=== PATIENT | female | born 1995 | race Caucasian/White ===

== ENCOUNTER 2019-04-27 22:58 | Observation (INO) | payer OTHER, SELFPAY ==
--- NOTE | 2019-04-27 23:04 | OBADM ---
This patient, Camilla Shannon, admitted to the OB room OB Post 117 for observation. Patient/family oriented to hospital policies and general routines including ID bracelet, bed and alarms, visiting hours, pain management, procedures, bathroom and other care routines, personal items, smoking policy, room service/diet, and visiting hours. Patient/Family are encouraged to report perceived risks to care and to ask questions if they do not understand what they are told or what they should do.
[2019-04-27 23:15] VITALS: BP 116/72; PULSE 93
[2019-04-27 23:16] VITALS: BP 117/74; PULSE 90
[2019-04-27 23:24] VITALS: BMI 32.7
--- NOTE | 2019-04-27 23:24 | PC.NURSE ---
Dr. Godoy notified of patient arrival to OB unit with complaint of increased vaginal discharge starting at 1300 04/27/2019. Patient reports clear colored fluid leaking intermittently, increased with movement. ROM plus results were positive for SROM. Patient reports active movement and movement visible by RN during monitor placement. VSS upon arrival. Patient reports back pain and cramping earlier today and yesterday, patient denies current pain or cramping. No contractions noted via TOCO monitoring and abdomen palpates soft. Orders given.
[2019-04-27 23:26] VITALS: TEMP 36.9
[2019-04-27 23:31] VITALS: BP 120/85; PULSE 118
[2019-04-27 23:46] VITALS: BP 131/79; PULSE 96
[2019-04-27 23:53] LABS: Basophils Percent Auto 0.4 % (0.2-1.2); Eosinophils Absolute Auto 0.1 K/mm3 (0-0.3); Eosinophils Percent Auto 1.3 % (0-4.4); Hematocrit 35.2 % (37.0-47.0); Hemoglobin 11.7 g/dL (12.0-15.0); Immature Granulocyte Absolute 0.06 K/mm3 (0.00-0.031); Immature Granulocyte Percent A 0.7 % (0-0.5); Lymphocytes Absolute Auto 2.06 K/mm3 (0.9-3.2); Lymphocytes Percent Auto 23.2 % (18.3-44.2); Mean Corpuscular HGB Conc 33.2 g/dl (32-36); Mean Corpuscular Hemoglobin 30.4 pg (26-34); Mean Corpuscular Volume 91.4 fl (80-100); Monocytes Absolute Auto 0.7 K/mm3 (0.1-0.6); Monocytes Percent Auto 7.5 % (2.6-8.5); Neutrophils Absolute Auto 5.9 K/mm3 (1.3-6.7); Neutrophils Percent Auto 66.9 % (45.5-73.1); Platelet Count Result 210 k/mm3 (150-375); Red Blood Count 3.85 M/mm3 (4.2-5.4); Red Cell Distribution Width 12.5 % (11.5-14.5); White Blood Count 8.9 K/mm3 (4.5-10.0)
[2019-04-27 23:55] LABS: Add Urine Microscopic? NO; Appearance Urine Clear (Clear); Bilirubin Urine Negative (Negative); Blood Urine Negative (Negative); Color Urine Straw (Yellow); Glucose Urine UA Negative (Negative); Ketones Urine Negative (Negative); Leukocyte Esterase Ur Negative LEU/UL (Negative); Nitrate Urine Negative (Negative); Protein Urine Negative (Negative); Specific Grav Ur 1.013 (1.001-1.035); Urobilinogen Urine Negative mg/dL (<2.0)
[2019-04-28] MEDS: LACTATED RINGERS 1,000 ML 100 ML IV CONT ×2 (00:01→01:55)
[2019-04-28] MEDS: BETAMETHASONE SOD PHOS/ACETATE 30 MG/5 ML VIAL 12 MG IM (00:02)
[2019-04-28 00:07] LABS: Alanine Aminotransferase 27 U/L (4-35); Albumin Level 3.6 g/dL (3.5-5.1); Alkaline Phosphatase 87 U/L (38-126); Aspartate Amino Transferase 21 U/L (14-36); Bilirubin,Total 0.1 mg/dL (0.2-1.3); Blood Urea Nitrogen 6 mg/dL (7-17); Calcium 9.1 mg/dL (8.4-10.2); Carbon Dioxide 22 mmol/L (22-30); Chloride 105 mmol/L (98-107); Estimated Glomerular Filt Rate > 60; Glucose 96 mg/dL (65-105); Potassium 3.8 mmol/L (3.4-5.0); Sodium 135 mmol/L (137-145)
--- NOTE | 2019-04-28 00:16 | PC.NURSE ---
Dr. Godoy at patient bedside. Plan of care discussed with patient. Order given for Magnesium Sulfate. FHT reviewed while at bedside. VS remain stable.
--- NOTE | 2019-04-28 00:24 | PC.NURSE ---
Dr. Godoy at bedside. Bedside ultrasound performed. Breech presentation confirmed.
[2019-04-28 00:38] VITALS: BP 131/79; PULSE 96; RESP 18; TEMP 36.4
[2019-04-28] MEDS: MAGNESIUM SULF 4 GM/WATER100ML 4 GM/100 ML BAG IVPB (00:38)
[2019-04-28 01:15] VITALS: TEMP 36.9
[2019-04-28] MEDS: MAGNESIUM SULF 20GM/WATER500ML 500 ML 50 MG IV CONT (01:15)
[2019-04-28] MEDS: AMPICILLIN 2 GM/NS 100 ML 2 GM/100 ML BAG IVPB (01:15)
--- NOTE | 2019-04-28 01:30 | PC.NURSE ---
Transport team arrived. Report given at bedside to transportation equipment painter. Patient prepared for transport by transport team.
[2019-04-28 01:32] VITALS: BP 123/75; PULSE 108
[2019-04-28 01:38] VITALS: TEMP 36.9
--- NOTE | 2019-04-28 01:46 | PC.NURSE ---
Patient left unit via stretcher with transport team.
--- NOTE | 2019-06-26 12:05 | PM.TDS ---
Transfer Discharge Sum: Prov Provider Date of admission: 04/27/19 22:58 Admitting clinician: Hector Godoy MD DS: Diagnosis Admitting Diagnosis Admitting Diagnosis: premature rupture of membranes, unspecified as to length of time between rupture and onset of labor, second trimester Transfer Discharge Sum: Med Medications Active and Home Medications: Home Medications PNV cmb#95-ferrous fumarate-FA [] 1 tablet PO DAILY 04/27/19 [History Confirmed 04/28/19] buspirone 5 mg PO DAILY 04/27/19 [History Confirmed 04/28/19] sertraline 100 mg PO DAILY 04/27/19 [History Confirmed 04/28/19] Transfer Discharge Sum: Hosp Hospital Course Hospital course: Camilla Shannon is a 23 year old female @ 24 weeks with spontaneous rupture of membranes. bedside ultrasound performed breech presentation. Patient transfered to tertiary center. Time Spent with Patient Time attestation: Total time spent providing and/or coordinating transfer services: Exam GI: GI Palp: Yes Soft to palpation
== END 2019-04-28 01:46 | disposition short-term general hospital (02) ==
PROVIDERS: Admitting Provider Obstetrics & Gynecology; Visit Provider Obstetrics & Gynecology
DX: O42.912 Preterm premature rupture of membranes, unspecified as to length of time between rupture and onset of labor, second trimester (principal); Z3A.24 24 weeks gestation of pregnancy
CPT/HCPCS: 36415; 80053; 81003; 85025; 96365; 96366; 96367; 96368; 96372; G0378; G0379; J0290; J0456; J0702; J3475; J7120

== ENCOUNTER 2021-05-23 19:11 | Emergency (ER) | payer OTHER, SELFPAY ==
--- NOTE | 2021-05-23 19:12 | ED.URI ---
HPI - URI/Sore Throat General Chief Complaint: Upper Respiratory Infection Stated Complaint: Body Aches Time Seen by Provider: 05/23/21 19:13 Source: patient, family, RN notes reviewed and old records reviewed Mode of arrival: ambulatory Limitations: no limitations History of Present Illness HPI Narrative: 25-year-old female presents to the [facility] with complaints of body aches that started this afternoon. No other symptoms. Denies chest pain or abdominal pain. No nausea vomiting or diarrhea. Denies fevers. No congestion. Related Data Home Medications Medication Instructions Recorded Confirmed buspirone 5 mg PO BID 05/23/21 05/23/21 omeprazole 10 mg PO DAILY 05/23/21 05/23/21 sertraline 25 mg PO DAILY 05/23/21 05/23/21 Allergies Allergy/AdvReac Type Severity Reaction Status Date / Time cephalexin [From Keflex] Allergy Itching Verified 05/23/21 19:35 tramadol Allergy Itching Verified 05/23/21 19:35 Review of Systems Review of Systems: All systems reviewed & are unremarkable except as noted in HPI and below Constitutional: Constitutional: Reports no additional constitutional complaints, Denies chills, Denies fever(s) and Denies headache(s) Eyes: Eyes: Reports no additional eye complaints ENT: Reports system reviewed and no additional complaints, except as documented, Denies vertigo, Denies dizziness, Denies headache(s), Denies nasal congestion and Denies sore throat Cardiovascular: Cardiovascular: Reports no additional cardiovascular complaints, Denies chest pain, Denies syncope, Denies rapid heart rate and Denies dyspnea Respiratory: Respiratory: Reports no additional respiratory complaints, Denies cough, Denies dyspnea and Denies wheezing Gastrointestinal: Gastrointestinal: Reports no additional gastrointestinal complaints, Denies abdominal pain, Denies diarrhea, Denies nausea and Denies vomiting Musculoskeletal: Musculoskeletal: Reports as per HPI, Denies back pain, Reports myalgias, Denies arthralgias, Denies joint swelling, Denies muscle cramps and Denies numbness Integumentary/Breasts: Skin/Breast: Reports system reviewed and no additional complaints, except as docu Neurologic: Reports system reviewed and no additional complaints, except as documented, Denies vertigo, Denies dizziness, Denies syncope, Denies headache(s), Denies focal weakness and Denies numbness Psychiatric: Psychiatric: Reports no additional psychiatric complaints Allergic/Immunologic: Allergic/Immunologic: Reports no additional allergic/immunologic complaints and Denies wheezing PMFSH Past Medical History Medical History (Updated 05/23/21 @ 19:36 by Kanchan Muse) Anxiety and depression H/O gastroesophageal reflux (GERD) Surgical History Surgical History (Updated 05/23/21 @ 19:34 by Kanchan Muse) History of tonsillectomy Social History Social History (Updated 05/23/21 @ 19:34 by Kanchan Muse) Smoking status: Never smoker Living arrangements: with family Gender identity (if verbalized by the patient): Female Comments At the time of my signature, I reviewed and agree with the nursing past medical, surgical, social, and family history. There is no relevant family history pertinent to the patient complaint. Exam Const: General: cooperative, healthy appearing, no acute distress, well developed and alert Nutritional Appearance: well nourished and obese Orientation/consciousness: patient oriented x3 Limitations: no limitations HENMT: Head: normal to inspection Ears: external ears normal, TM's normal bilaterally and EAC's normal Face and sinus: sinuses nontender Mouth: Yes Normal oral and palatal mucosa present Throat: posterior oropharynx normal, uvula midline, tonsils absent and no uvular edema Eyes: Conjunctivae: conjunctivae normal Pupils: Equal, round and reactive pupils present Neck: Neck: normal visual inspection, no lymphadenopathy and no meningeal signs Chest: Chest palpation & inspection: normal
[2021-05-23 19:28] VITALS: BP 137/84; PULSE 94; RESP 16; TEMP 36.8; O2SAT 100
== END 2021-05-23 19:40 | disposition home or self-care (01) ==
PROVIDERS: Emergency Provider Nurse Practitioner; PCP Physician Assistant
DX: R52 Pain, unspecified (principal); Z20.822 Contact with and (suspected) exposure to COVID-19; K21.9 Gastro-esophageal reflux disease without esophagitis; F41.9 Anxiety disorder, unspecified; F32.A Depression, unspecified
CPT/HCPCS: 99202; G0463

== ENCOUNTER 2023-05-24 14:12 | Outpatient (CLI) | payer BC, SELFPAY ==
--- NOTE | ~2023-05-24 | US_ITS ---
EXAMINATION: US OB transvaginal DATE: 05/24/2023 14:38 INDICATION: Inconclusive viability, first trimester TECHNIQUE: Real-time pelvic transabdominal and transvaginal ultrasound was performed. COMPARISON: None. FINDINGS: The uterus measures 9.5 x 5.0 x 5.3 cm. There is an intrauterine gestational sac. hea rt motion is identified measuring 93 beats per minute (bpm) by M-mode Doppler. The crown rump l ength measures 3 mm, which correlates with an estimated gestational age of 6 weeks and 0 day(s) (+/-) 4 day(s). The right ovary measures 3.5 x 2.9 x 4.1 cm. The left ovary measures 3.1 x 1.4 x 3.5 cm. There is no free fluid in the pelvis. IMPRESSION: 1. Live intrauterine with an estimated gestational age of 6 weeks and 0 day(s) (+/-) 4 day( s) and an estimated delivery date of 01/17/2024. 2. Possible bradycardia however measurement may be inaccurate due to early gestation. Reviewed, dictated and finalized at location F. RAGE INSPECTION MACHINE TENDER IMPRESSION: 1. Live intrauterine with an estimated gestational age of 6 weeks and 0 day(s) (+/-) 4 day(s) and an estimated delivery date of 01/17/2024. 2. Possible bradycardia however measurement may be inaccurate due to leeanne y gestation.
== END 2023-05-24 14:13 ==
LOC: MICIMG 14:13
PROVIDERS: PCP Obstetrics & Gynecology Gynecology; Visit Provider Obstetrics & Gynecology Gynecology
DX: O36.80X1 Pregnancy with inconclusive fetal viability, fetus 1 (principal); Z3A.01 Less than 8 weeks gestation of pregnancy
CPT/HCPCS: 76817

== ENCOUNTER 2023-05-30 14:16 | Outpatient (CLI) | payer BC, SELFPAY ==
--- NOTE | ~2023-05-30 | US_ITS ---
EXAMINATION: US OB <= 14 weeks fetus DATE: 05/30/2023 14:36 INDICATION: Inconclusive viability. TECHNIQUE: Real-time transabdominal and transvaginal pelvic ultrasound was performed. COMPARISON: Ultrasound 05/24/2023 FINDINGS: TRANSABDOMINAL ULTRASOUND: The uterus measures 8.9 x 5.1 x 6.2 cm. TRANSVAGINAL ULTRASOUND: There is an intrauterine gestational sac. A yolk sac is identified. The fet al crown rump length measures 8 mm, which correlates with an estimated gestational age of 6 weeks and 5 day(s) (+/-) 4 day(s). heart motion is identified measuring 118 beats per minute (bpm) by M- mode Doppler. The right ovary measures 3.6 x 2.4 x 3.5 cm. The left ovary measures 2.6 x 0.8 x 1.9 cm . There is no free fluid in the pelvis. IMPRESSION: 1. Single living intrauterine gestation with estimated date of delivery of 01/17/2024 based on the ul trasound from 05/24/2023. Reviewed, dictated and finalized at location E. PRESIDENT INVESTOR RELATIONS IMPRESSION: 1. Single living intrauterine gestation with estimated date of delivery of 01/05 based on the ultrasound from 05/24/2023.
== END 2023-05-30 14:17 ==
LOC: MICIMG 14:16
PROVIDERS: PCP Obstetrics & Gynecology Gynecology; Visit Provider Obstetrics & Gynecology Gynecology
DX: O36.80X0 Pregnancy with inconclusive fetal viability, not applicable or unspecified (principal)
CPT/HCPCS: 76801

== ENCOUNTER 2023-06-07 14:44 | Outpatient (CLI) | payer BC, SELFPAY ==
--- NOTE | ~2023-06-07 | US_ITS ---
EXAMINATION: US OB limited DATE: 06/07/2023 15:12 INDICATION: Inconclusive viability. TECHNIQUE: Real-time transabdominal pelvic ultrasound was performed. COMPARISON: Ultrasound 05/30/2023, 05/24/23 FINDINGS: The uterus measures 10.7 x 5.7 x 6.7 cm. There is an intrauterine gestational sac. A yolk sac is iden tified. The crown rump length was not measured. heart motion is identified measuring 166 beats per minute (bpm) by M-mode Doppler. The ovaries are not visualized. There is no free fluid in the pelvis. IMPRESSION: 1. Single living intrauterine gestation with estimated date of delivery of 01/17/2024 based on the ul trasound from 05/24/2023. Reviewed, dictated and finalized at location A. CTOR OF PARTNERSHIPS IMPRESSION: 1. Single living intrauterine gestation with estimated date of delivery of 01/05 based on the ultrasound from 05/24/2023.
== END 2023-06-07 14:45 ==
LOC: MICIMG 14:45
PROVIDERS: PCP Obstetrics & Gynecology Gynecology; Visit Provider Obstetrics & Gynecology Gynecology
DX: O36.80X0 Pregnancy with inconclusive fetal viability, not applicable or unspecified (principal); Z3A.00 Weeks of gestation of pregnancy not specified
CPT/HCPCS: 76815

== ENCOUNTER 2023-08-17 15:24 | Outpatient (CLI) | payer BC, SELFPAY ==
--- NOTE | ~2023-08-17 | US_ITS ---
US OB /maternal detail DATE: 08/17/2023 17:17 INDICATION: anatomy screen TECHNIQUE: Real-time imaging and Doppler analysis COMPARISON: June 07, 2023 and May 30, 2023 extent ultrasound examinations FINDINGS: Live martinez intrauterine gestation, fetus in transverse lie, breech presentation. heart rate of 168 bpm. Fundal placenta, lower margin 9.2 cm above the internal os. Cervical length measures 3.8 cm. Subjectively normal amount of amniotic fluid. Normal cerebral ventricles, cerebellum, cisterna magna and nuchal fold. The spine appears intact on transverse and longitudinal imaging. The diaphragm appears intact. Fluid is demonstr ated in the stomach and urinary bladder. The kidneys appear normal without hydronep hrosis. extremities are demonstrated. Three-vessel cord with normal insertion. Four-chamber heart and outflow tracts were not optimally demonstrated on the current examinatio n. Consider follow-up imaging for this purpose. Biparietal diameter 4.24 cm; 18 weeks 6 days Head circumference 15.27 cm; 18 weeks 2 days Abdominal circumference 13.22 cm; 18 weeks 5 days Femur length 2.65 cm; 18 weeks 0 days Composite age by Hadlock formula is 18 weeks 3 days +/- 1 week 2 days based upon the current measurem ents, with BERT of 01/15/2024, compared to 01/18/2024 based upon the 05/30/2023 obstetrical ultrasound ex amination and 01/17/2024 based upon LMP. IMPRESSION: Breech presentation Suboptimal heart and outflow tract demonstration; consider follow-up imaging Normal growth Reviewed, dictated and finalized at Location A. Reviewed, dictated and finalized at location A. IMPRESSION: Breech presentation Suboptimal heart and outflow tract demonstration; consider follow-up imag ing Normal growth
== END 2023-08-17 15:25 ==
LOC: MICIMG 15:24
PROVIDERS: PCP Obstetrics & Gynecology Gynecology; Visit Provider Obstetrics & Gynecology Gynecology
DX: O32.1XX0 Maternal care for breech presentation, not applicable or unspecified (principal); Z36.9 Encounter for antenatal screening, unspecified; Z3A.00 Weeks of gestation of pregnancy not specified
CPT/HCPCS: 76805

== ENCOUNTER 2023-09-17 12:52 | Outpatient (CLI) | payer BC, SELFPAY ==
--- NOTE | ~2023-09-17 | US_ITS ---
EXAMINATION: US OB limited DATE: 09/17/2023 13:14 INDICATION: Incomplete anatomic survey. Second trimester. TECHNIQUE: Real-time ultrasound of the pelvis was performed. COMPARISON: Ultrasound 08/17/2023 FINDINGS: There is a single fetus in transverse lie. The placenta is fundal. The cervical length is 3.4 cm on transabdominal images, which is normal. heart rate is 130 beats per minute (bpm). The hea rt is normal. The amniotic fluid volume is subjectively normal. IMPRESSION: 1. Single living fetus in transverse lie. 2. Normal heart. Reviewed, dictated and finalized at location A.
== END 2023-09-17 12:53 ==
LOC: MICIMG 12:53
PROVIDERS: PCP Obstetrics & Gynecology Gynecology; Visit Provider Obstetrics & Gynecology Gynecology
DX: Z36.2 Encounter for other antenatal screening follow-up (principal); Z3A.00 Weeks of gestation of pregnancy not specified
CPT/HCPCS: 76815

== ENCOUNTER 2023-10-25 14:18 | Outpatient (CLI) | payer BC, SELFPAY ==
--- NOTE | ~2023-10-25 | US_ITS ---
EXAMINATION: US OB follow up DATE: 10/25/2023 14:42 INDICATION: Expected size greater than expected for estimated gestational age TECHNIQUE: Real-time ultrasound of the pelvis was performed. The interpreting radiologist was not pre sent for the study. COMPARISON: None. FINDINGS: There is a single living fetus in transverse lie presentation. The placenta is fundal and not low-ly ing. Normal cervical length of 4.1 cm. heart rate is 130 beats per minute (bpm). The amniotic f luid index is 11.5 cm, which is normal. The following biometric data were obtained: BPD: 7.4 cm -> 29 weeks 5 days Head circumference: 25.8 cm -> 29 weeks 1 days Abdominal circumference: 24.7 cm -> 28 weeks 6 days Femur length: 5.0 cm -> 26 weeks 5 days Femur length to biparietal diameter ratio is greater than 2 standard deviations below the mean and th e femur length to head circumference ratio is nearly 2 standard deviations below the mean. Head circumference to abdominal circumference ratio: 1.08 (normal range 1.00-1.21). Estimated weight: 1203 g (+/-) g or 1812 lbs. 10 oz. (+/-) 6 oz. IMPRESSION: 1. Single living fetus in transverse lie with heart rate of 130 bpm. 2. Normal amniotic fluid index of 11.5 cm. 3. Estimated weight is 48th percentile by Hadlock criteria when 01/17/24 is used as the estimate d date of delivery (BERT). Please correlate with clinical information or earlier ultrasounds for most accurate BERT. 4. Discordant biometric data with femur length to biparietal diameter ratio slightly greater than 2 s tandard deviations below the mean and femur length to head circumference ratio is nearly 2 standard d eviations below the mean. Reviewed, dictated and finalized at location A. IMPRESSION: 1. Single living fetus in transverse lie with heart rate of 130 bpm. 2. Normal amniotic fluid index of 11.5 cm. 3. Estimated weight is 48th percentile by Hadlock criteria when 01/17/24 i s used as the estimated date of delivery (BERT). Please correlate with clinical information or earlier ultrasounds for most accurate BERT. 4. Discordant biometric data with femur length to biparietal diameter ratio sli ghtly greater than 2 standard deviations below the mean and femur length to hea d circumference ratio is nearly 2 standard deviations below the mean.
== END 2023-10-25 14:19 ==
LOC: MICIMG 14:20
PROVIDERS: PCP Obstetrics & Gynecology Gynecology; Visit Provider Obstetrics & Gynecology Gynecology
DX: O36.63X0 Maternal care for excessive fetal growth, third trimester, not applicable or unspecified (principal); Z3A.00 Weeks of gestation of pregnancy not specified
CPT/HCPCS: 76816

== ENCOUNTER 2024-01-12 15:30 | Inpatient (IN) | payer BC, SELFPAY ==
[2024-01-12] VITALS (113 sets, daily range): BP systolic 85–151; BP diastolic 53–116; PULSE 73–160; TEMP 36.6–37; O2SAT 90–100; BMI 39.5
[2024-01-12 16:32] LABS: Basophils Percent Auto 0.1 % (0.2-1.2); Eosinophils Percent Auto 0.3 % (0-4.4); Hematocrit 35.5 % (37.0-47.0); Hemoglobin 12.3 g/dL (12.0-15.0); Immature Granulocyte Absolute 0.02 K/mm3 (0.00-0.031); Immature Granulocyte Percent A 0.3 % (0-0.5); Lymphocytes Absolute Auto 1.37 K/mm3 (0.9-3.2); Lymphocytes Percent Auto 17.7 % (18.3-44.2); Mean Corpuscular HGB Conc 34.6 g/dl (32-36); Mean Corpuscular Hemoglobin 30.6 pg (26-34); Mean Corpuscular Volume 88.3 fl (80-100); Mean Platelet Volume 12.1 fl (7.4-10.4); Monocytes Absolute Auto 0.6 K/mm3 (0.1-0.6); Monocytes Percent Auto 7.9 % (2.6-8.5); Neutrophils Absolute Auto 5.7 K/mm3 (1.3-6.7); Neutrophils Percent Auto 73.7 % (45.5-73.1); Platelet Count Result 133 k/mm3 (150-375); Red Blood Count 4.02 M/mm3 (4.2-5.4); Red Cell Distribution Width 13.3 % (11.5-14.5); White Blood Count 7.7 K/mm3 (4.5-10.0)
[2024-01-12] MEDS: LACTATED RINGERS 1,000 ML 125 ML IV CONT ×3 (16:40→19:21)
[2024-01-12 17:28] LABS: HIV 1/2 Ab P24 Ag Result Negative (Negative)
--- NOTE | 2024-01-12 17:32 | LDADM ---
This patient, Camilla Shannon, was admitted to Labor/Delivery/Recovery 105 on 01/12/24 at 15:30. Plans for labor, pain management and were discussed with patient. Patient/family oriented to hospital policies and general routines including ID bracelet, bed and alarms, visiting hours, pain management, procedures, bathroom and other care routines, personal items, smoking policy, room service/diet and guest tray routines, security routines, and visiting hours. Patient/Family are encouraged to report perceived risks to care and to ask questions if they do not understand what they are told or what they should do. See OBIX for further documentation.
--- NOTE | 2024-01-12 17:57 | WPDANESEPP ---
Anes - Eval Pre Procedure Procedure: Labor epidural Date/Time: 01/12/24 17:57 Surgeon: Marcelo Preop Diagnosis: Abdominal pain with contractions Pre Op Diagnosis: Labor Patient Data Age: 28 Gender: F Height: 1.55 m Weight: 95 kg Last Vital Signs Pulse 89 01/12/24 17:45 BP 125/85 01/12/24 17:45 O2 Del Method Room Air 01/12/24 17:29 Allergies Allergy/AdvReac Type Severity Reaction Status Date / Time cephalexin [From Keflex] Allergy Itching Verified 12/20/23 13:31 tramadol Allergy Itching Verified 12/20/23 13:31 Home Medications Medication Instructions Recorded Confirmed Type vit no.95-ferrous 1 tablet PO DAILY 04/27/19 09/04/23 History fumarate 28 mg-folic acid 800 mcg tablet () buspirone 15 mg tablet 15 mg PO BID #180 tabs 01/20/22 09/04/23 Rx sertraline 100 mg tablet 200 mg PO DAILY #180 tabs 05/01/23 09/04/23 Rx cholecalciferol (vitamin D3) 125 125 mcg PO DAILY 12/20/23 12/20/23 History mcg (5,000 unit) tablet Laboratory Tests 01/12/24 16:24 WBC 7.7 K/mm3 (4.5-10.0) RBC 4.02 L M/mm3 (4.2-5.4) Hgb 12.3 g/dL (12.0-15.0) Hct 35.5 L % (37.0-47.0) MCV 88.3 fl (80-100) MCH 30.6 pg (26-34) MCHC 34.6 g/dl (32-36) RDW 13.3 % (11.5-14.5) Plt Count 133 L k/mm3 (150-375) MPV 12.1 H fl (7.4-10.4) Immature Gran % (Auto) 0.3 % (0-0.5) Neut % (Auto) 73.7 H % (45.5-73.1) Lymph % (Auto) 17.7 L % (18.3-44.2) [place] % (Auto) 7.9 % (2.6-8.5) Eos % (Auto) 0.3 % (0-4.4) Baso % (Auto) 0.1 L % (0.2-1.2) Lymph # (Auto) 1.37 K/mm3 (0.9-3.2) [place] # (Auto) 0.6 K/mm3 (0.1-0.6) Eos # (Auto) 0.0 K/mm3 (0-0.3) Baso # (Auto) 0.0 K/mm3 (0.0-0.1) Abs Immat Gran (auto) 0.02 K/mm3 (0.00-0.031) Absolute Neuts (auto) 5.7 K/mm3 (1.3-6.7) Absolute Nucleated RBC 0.000 K/mm3 (0.0-0.012) Nucleated RBC % 0.0 % (0.0-0.2) RPR Pending HIV 1&2 Ab/P24 Ag 4thGn Negative (Negative) Blood Type O Positive Antibody Screen Negative : gestational age HCG: positive Patient hx anesthesia problems: none Family hx anesthesia problems: none Results Review: All pre-operative results and documents have been reviewed as part of the pre-operative evaluation. [facility] Past Medical History Medical History Anxiety and depression Asthma H/O gastroesophageal reflux (GERD) History of premature rupture of membranes (PPROM) SOB (shortness of breath) Surgical History Surgical History H/O foot surgery History of nasal surgery History of tonsillectomy Family History Family History Mother Brain tumor Cerebrovascular accident Neoplasm of heart Other Asthma Social History Social History Smoking status: Never smoker Alcohol intake: current Substance use: never Do You Feel Safe in your Home?: Yes Lack of Transportation: No Lack of Food: Never True Current Housing: I Have Housing Concerned About Future Housing: No Difficulty Paying Gas/Electric Bills: No Difficulty Paying for Meds: No Currently Unemployed: No Education: Associate Degree Difficulty w/ Childcare or Family Care: No Living arrangements: with family Gender identity (if verbalized by the patient): Female Spiritual care concerns: No Exam Day of Procedure 01/12/24 17:57 Patient weight: obese Lungs: clear to auscultation Airway: Mallampati scale class II Neurological: alert and oriented
[2024-01-12 18:29] LABS: Rapid Plasma Reagin Non-Reactive (NonReactive)
[2024-01-13] VITALS (83 sets, daily range): BP systolic 118–157; BP diastolic 70–103; PULSE 68–158; RESP 18; TEMP 36.3–37.3; O2SAT 86–100
--- NOTE | 2024-01-13 01:09 | PM.IMHP ---
H&P: HPI History of Present Illness Date/Time: 01/13/24 01:09 Chief Complaint: Contractions Narrative: 28 y/o at 39 5/7 weeks here with contractions. Labor diagnosed. Cervix has continued to dilate. Just had SROM with meconium-stained fluid. GBS neg. Comfortable with epidural. Review of Systems Review of Systems: All systems reviewed & are unremarkable except as noted in HPI and below PMFSH Past Medical History Medical History Anxiety and depression Asthma H/O gastroesophageal reflux (GERD) History of premature rupture of membranes (PPROM) SOB (shortness of breath) Surgical History Surgical History H/O foot surgery History of nasal surgery History of tonsillectomy Family History Family History Mother Brain tumor Cerebrovascular accident Neoplasm of heart Other Asthma Social History Social History Smoking status: Never smoker Alcohol intake: current Substance use: never Do You Feel Safe in your Home?: Yes Lack of Transportation: No Lack of Food: Never True Current Housing: I Have Housing Concerned About Future Housing: No Difficulty Paying Gas/Electric Bills: No Difficulty Paying for Meds: No Currently Unemployed: No Education: Associate Degree Difficulty w/ Childcare or Family Care: No Living arrangements: with family Gender identity (if verbalized by the patient): Female Spiritual care concerns: No Meds Home Medications and Allergies Home Medications Medication Instructions Recorded Confirmed Type vit no.95-ferrous 1 tablet PO DAILY 04/27/19 09/04/23 History fumarate 28 mg-folic acid 800 mcg tablet () buspirone 15 mg tablet 15 mg PO BID #180 tabs 01/20/22 09/04/23 Rx sertraline 100 mg tablet 200 mg PO DAILY #180 tabs 05/01/23 09/04/23 Rx cholecalciferol (vitamin D3) 125 125 mcg PO DAILY 12/20/23 12/20/23 History mcg (5,000 unit) tablet Allergies Allergy/AdvReac Type Severity Reaction Status Date / Time cephalexin [From Keflex] Allergy Itching Verified 12/20/23 13:31 tramadol Allergy Itching Verified 12/20/23 13:31 Vital Signs Vital Signs - 24 hr 01/12/24 16:15 01/12/24 16:30 01/12/24 16:45 Temperature Pulse Rate 105 H 101 H 96 Blood Pressure 124/79 117/84 130/83 Pulse Oximetry Oxygen Delivery 01/12/24 17:00 01/12/24 17:15 01/12/24 17:45 Temperature Pulse Rate 96 90 89 Blood Pressure 124/81 115/76 125/85 Pulse Oximetry Oxygen Delivery 01/12/24 18:00 01/12/24 18:01 01/12/24 18:03 Temperature Pulse Rate 102 H Blood Pressure 111/94 H Pulse Oximetry 99 100 Oxygen Delivery 01/12/24 18:07 01/12/24 18:08 01/12/24 18:10 Temperature Pulse Rate 95 112 H Blood Pressure 129/76 147/95 H Pulse Oximetry 99 Oxygen Delivery 01/12/24 18:12 01/12/24 18:13 01/12/24 18:16 Temperature Pulse Rate 118 H 99 Blood Pressure 151/116 H 132/86 Pulse Oximetry 99 Oxygen Delivery 01/12/24 18:17 01/12/24 18:18 01/12/24 18:21 Temperature Pulse Rate 105 H 89 Blood Pressure 143/101 H 119/69 Pulse Oximetry 98 98 Oxygen Delivery 01/12/24 18:23 01/12/24 18:24 01/12/24 18:27 Temperature Pulse Rate 90 96 Blood Pressure 123/70 120/65 Pulse Oximetry 99 Oxygen Delivery 01/12/24 18:28 01/12/24 18:30 01/12/24 18:33 Temperature Pulse Rate 86 87 Blood Pressure 120/69 119/69 Pulse Oximetry 100 100 Oxygen Delivery 01/12/24 18:36 01/12/24 18:38 01/12/24 18:39 Temperature Pulse Rate 84 81 Blood Pressure 118/78 114/73 Pulse Oximetry 100 Oxygen Delivery 01/12/24 18:42 01/12/24 18:43 01/12/24 18:45 Temperature Pulse Rate 86 80 Blood Pressure 120/74 122/77 Pu
[2024-01-13] MEDS: OXYTOCIN 30 UNITS/NS 500 ML 30 UNITS/500 ML BAG IV CONT (01:35)
[2024-01-13] MEDS: ONDANSETRON INJ 4 MG/2 ML VIAL IV PUSH (02:03)
[2024-01-13] MEDS: LACTATED RINGERS 1,000 ML 125 ML IV CONT (03:34)
--- NOTE | 2024-01-13 04:38 | PM.OBPRVD ---
OB - Vaginal Delivery Note Procedure Delivery date: 01/13/24 Induction method: None Delivery augmentation: Pitocin Delivery monitor: External FHT, External Uterine and Internal Uterine Route of delivery: Episiotomy description: None Specimen: Yes (cord blood, placenta) Quantitative Blood Loss (ml): 80 Anesthesia type: Epidural Disposition: PACU Complications: None Narrative: 28 y/o at 39 5/7 weeks gestation who presented with contractions. Labor was diagnosed. She received an epidural for pain control. She had SROM with thick meconium. Oxytocin was administered intravenously for labor augmentation. Her labor progressed and her cervix dilated completely. She pushed and the infant rotated from LOP to DANITA. The 's head delivered to the perineum, followed by the body. A loose nuchal cord was reduced. The nose and mouth were bulb suctioned. The cord was clamped and cut. The infant was handed off the field. Cord blood was collected. The placenta delivered spontaneously and was grossly normal in appearance. The usual 3 vessel cord was noted. There were no lacerations. Needle and instrument counts were correct. The patient was taken to recovery room in stable condition. The showed poor respiratory effort and was taken to the nursery. I was present and scrubbed for the entire delivery. Baby Date of : 01/13/24 Time of : 04:22 Gestational Age by Date: 39 gender: Male presentation: vertex position: Left Occiput Anterior Placenta delivery description: Spontaneous and Normal Configuration Cord Vessel Description: 3 Vessels and Nuchal Cord
--- NOTE | 2024-01-13 04:46 | PM.OBDSVD ---
DS: Admitting Diagnosis Discharge Date 01/13/24 Admitting Diagnosis IUP at 39 5/7 weeks Labor DS: Discharge Diagnosis Discharge Diagnosis (1) (normal spontaneous vaginal delivery): Code(s): O80 - Encounter for full-term uncomplicated delivery Status: Acute OB - DS: Summary Hospital Course Hospital Course: Delivered vaginally. Baby was transferred, so patient asked to be discharged late on PPD#0. OB Procedures : None OB Procedures Intrapartum: Spontaneous Vag Delivery OB Procedures: : None Peripartum Data Episiotomy description: None Time Spent with Patient Time attestation: Total time spent providing and/or coordinating discharge services: DS: Data Data Completed and Pending Labs on day of discharge: Labs from last 24 hours 01/12/24 16:24 WBC 7.7 RBC 4.02 L Hgb 12.3 Hct 35.5 L MCV 88.3 MCH 30.6 MCHC 34.6 RDW 13.3 Plt Count 133 L MPV 12.1 H Immature Gran % (Auto) 0.3 Neut % (Auto) 73.7 H Lymph % (Auto) 17.7 L [place] % (Auto) 7.9 Eos % (Auto) 0.3 Baso % (Auto) 0.1 L Lymph # (Auto) 1.37 [place] # (Auto) 0.6 Eos # (Auto) 0.0 Baso # (Auto) 0.0 Abs Immat Gran (auto) 0.02 Absolute Neuts (auto) 5.7 Absolute Nucleated RBC 0.000 Nucleated RBC % 0.0 RPR Non-reactive HIV 1&2 Ab/P24 Ag 4thGn Negative Blood Type O Positive Antibody Screen Negative Discharge Plan Discharge Attending physician on discharge: Jenise Robertson Discharging Clinician: Joel Le Patient Disposition: Home, Self-Care Activity: pelvic rest Diet: regular Discharge Instructions: Education: Mom and Baby Guide Given to: Mother Follow-Up: Call your delivering provider's office for an appointment to be seen in: 6 Weeks Mom and baby should come to the [facility] for the follow-up appointment. Appointment Date/Time: Sunday, January 14, 2024 at 9:00 am What to expect at your follow-up visit: Physical Assessment Call [phone] if you are unable to keep your appointment time. BREAST CARE: * Wear a snug supportive bra. * For engorgement discomfort: Breast Feeding: * Apply warm moist washcloths * Express milk as needed to relieve engorgement * Wear loose clothing Bottle Feeding: * May apply ice packs * For sore nipples: * Identify correct latch-on * Apply warm moist washcloths before and after nursing * Air dry nipples after nursing * May apply Lansinoh cream to nipples PERINEAL CARE: * Until bleeding stops, use your christian bottle after urinating * Change your pad frequently throughout the day * You may take sitz baths several times a day (fill your bathtub with warm water and soak for 20 minutes.) Do NOT bathe in the water * No tub baths until seen by your physician - You may shower ACTIVITY: * Rest as much as possible. * Do not exercise or lift anything heavier than your baby (such as laundry or other children.) * Avoid stairs or driving as much as possible. * Do not put anything into the vagina. No douching, tampons, or sexual activity until seen by physician. NOTIFY PHYSICIAN IF YOU HAVE ANY QUESTIONS OR IF ANY OF THE FOLLOWING SYMPTOMS OCCUR: * If your episiotomy or incision becomes red, swollen, or more painful than what you have experienced in the hospital. * If your vaginal bleeding becomes foul smelling. * If your vaginal bleeding becomes more heavy than a period or if your bleeding changes from pink to bright red. However, you may pass an occasional walnut-sized clot once or twice for the first week . * If you experience a sharp, shooting pain in you calves. * If you discover a hard, reddened area on your breast or if you experience flu-like symptoms. DIET: * Eat regular, well-balanced meals. * Drink plenty of fluids daily. If , drink to thirst. Per Dr. Le, Call or
[2024-01-13] MEDS: OXYTOCIN 30 UNITS/NS 500 ML 30 UNITS/500 ML BAG 125 UNITS IV CONT (05:03)
[2024-01-13] MEDS: IBUPROFEN 600 MG TABLET (07:57)
[2024-01-13] MEDS: BENZOCAINE 20% AER SPR (*SP) 56 GM CAN 1 SPRAY (08:41)
[2024-01-13] MEDS: WITCH HAZEL 40 PADS 1 PAD (08:41)
--- NOTE | 2024-01-13 16:31 | OBPPTRN ---
0728 Patient transferred to post room #287 via W/C. Oriented to unit, room, information board, rooming in, admission packet and security measures. Patient verbalizes understanding.
--- NOTE | 2024-01-13 17:02 | PC.NURSE ---
1100 Patient viewed the discharge video Mother & Baby Care, The First Two Weeks . Patient was given the opportunity and encouraged to ask questions. Patient verbalized understanding of information shared and has been given the mother/baby guide for home reference.
--- NOTE | 2024-01-14 08:34 | PCCCNOTE ---
Recvd Care Coordination consult. Baby was transferred to different hospital, and pt. was discharged prior to CC seeing them.
[2024-01-14 11:44] VITALS: BP 122/61; PULSE 96; RESP 18; TEMP 36.7; O2SAT 100
== END 2024-01-13 13:13 | disposition home or self-care (01) | DRG 807 ==
LOC: ANHLDR 01-13 04:47 → ANHOB2 01-13 12:36 → ANHLDR 01-16 06:16
PROVIDERS: Admitting Provider Obstetrics & Gynecology; Visit Provider Obstetrics & Gynecology
DX: O77.0 Labor and delivery complicated by meconium in amniotic fluid (principal); Z37.0 Single live birth; O69.81X0 Labor and delivery complicated by cord around neck, without compression, not applicable or unspecified; Z3A.39 39 weeks gestation of pregnancy
CPT/HCPCS: 36415; 85025; 86592; 86703; 86850; 86900; 86901; A9270; G0432; J2405; J2590; J2795; J7120

== ENCOUNTER 2024-01-19 13:48 | Emergency (ER) | payer BC, SELFPAY ==
--- NOTE | ~2024-01-19 | CT_ITS ---
CT abdomen pelvis w con Ordering provider: Bertha Dinh APRN History: 28 years Female with . RLQ pain . Comparison: None. Technique: CT abdomen and pelvis with IV and without oral contrast. Automated exposure control and it erative reconstruction technique were employed. The dose-length product was 709.73 mGy-cm. 100 mL Omn ipaque 350 was given IV. Findings: VISUALIZED LOWER CHEST: Normal. UPPER ABDOMINAL ORGANS: Liver: Normal. Gallbladder: Normal. Spleen: Normal. Stomach/duodenum: Normal. Pancreas: Normal. Adrenals: Normal. Kidneys: Normal. PELVIC ORGANS: The bladder is underfilled. Uterus: Enlarged with hypodensity seen in the left fundal area which may indicate infiltrative proces s. Clinical correlation and further evaluation is advised. Evaluation for is also advised. BOWEL AND MESENTERY: Colon: No evidence of diverticulitis.. No evidence of appendicitis. Small Bowel: Normal. No obstruction. Peritoneum/mesentery: No free air or free fluid. No mesenteric lymphadenopathy. RETROPERITONEUM: Normal aorta. No retroperitoneal lymphadenopathy. MUSCULOSKELETAL: Superficial soft tissues: The superficial soft tissues are normal. Bones: Normal spine. IMPRESSION: 1. Enlarged uterus with large hypodensity in the left frontal area of the uterus which may indicate infiltrative process. Fibroid is less likely but cannot be excluded.Further evaluation advised. Reviewed, dictated and finalized at location A. IMPRESSION: 1. Enlarged uterus with large hypodensity in the left frontal area of the uter us which may indicate infiltrative process. Fibroid is less likely but cannot b e excluded.Further evaluation advised.
[2024-01-19 13:49] VITALS: BP 125/81; PULSE 95; RESP 16; TEMP 36.8; O2SAT 98
--- NOTE | 2024-01-19 14:04 | ED.ABDPAIN ---
HPI - Abdominal Pain General Chief Complaint: Abdominal Pain Stated Complaint: abd cramping Time Seen by Provider: 01/19/24 14:03 Source: patient and family Mode of arrival: ambulatory Limitations: no limitations History of Present Illness HPI narrative: Patient is a 28-year-old female who presents to the ER with right lower quadrant abdominal pain. She vaginally delivered a baby 1 week ago on January 12. This morning patient started experiencing lower abdominal pain. She describes the pain as increased cramping. Patient took ibuprofen 30 minutes prior to arrival. She denies increased vaginal bleeding. Patient denies chest pain, shortness of breath, extremity swelling, but does endorse passing a couple small vaginal clots this morning. Related Data Home Medications Medication Instructions Recorded Confirmed vit no.95-ferrous 1 tablet PO DAILY 04/27/19 09/04/23 fumarate 28 mg-folic acid 800 mcg tablet () cholecalciferol (vitamin D3) 125 125 mcg PO DAILY 12/20/23 12/20/23 mcg (5,000 unit) tablet Allergies Allergy/AdvReac Type Severity Reaction Status Date / Time cephalexin [From Keflex] Allergy Itching Verified 01/19/24 14:52 tramadol Allergy Itching Verified 01/19/24 14:52 Review of Systems Review of Systems: All systems reviewed & are unremarkable except as noted in HPI and below PMFSH Past Medical History Medical History Anxiety and depression Asthma H/O gastroesophageal reflux (GERD) History of premature rupture of membranes (PPROM) SOB (shortness of breath) Surgical History Surgical History H/O foot surgery History of nasal surgery History of tonsillectomy Family History Family History Mother Brain tumor Cerebrovascular accident Neoplasm of heart Other Asthma Social History Social History Smoking status: Never smoker Alcohol intake: current Substance use: never Do You Feel Safe in your Home?: Yes Lack of Transportation: No Lack of Food: Never True Current Housing: I Have Housing Concerned About Future Housing: No Difficulty Paying Gas/Electric Bills: No Difficulty Paying for Meds: No Currently Unemployed: No Education: Associate Degree Difficulty w/ Childcare or Family Care: No Living arrangements: with family Gender identity (if verbalized by the patient): Female Spiritual care concerns: No Exam Narrative: GENERAL: Well appearing, well-nourished, non-toxic, in no acute distress. RESPIRATORY: Airway patent, respirations nonlabored. Clear to auscultation bilaterally, no rales, rhonchi, wheezing. CARDIOVASCULAR: Regular rate and rhythm without murmurs, rubs, or gallops. Peripheral pulses 2+ and equal bilaterally. ABDOMINAL: Soft, tender in RLQ, nondistended, no hepatosplenomegaly. Normoactive BS. MUSCULOSKELETAL: Moves all extremities. Strength/ROM intact without gross deformities. GI/: pt has minimal amount of vaginal bleeding, no noticeable clots upon exam, no open wounds or signs/symptoms of vagina infection SKIN: Warm, dry, normal color. No rashes. NEURO: A&O X3. Speech clear. Cranial nerves II-XII grossly intact. No ataxic movements. PSYCHIATRIC: Appropriate mood and affect. Normal interaction. Course Consultations Consultation #1: OBGYNDr. Mp Advised to treat pt's UTI and encouraged pt to call him if she starts increased vaginal bleeding. Date: 01/19/24 Time: 16:10 Vital Signs Vital signs: Vital Signs Temperature 36.8 C 01/19/24 13:49 Pulse Rate 95 01/19/24 13:49 Respiratory Rate 16 01/19/24 13:49 Blood Pressure 125/81 01/19/24 13:49 Pulse Oximetry 98 01/19/24 13:49 Oxygen Delivery Room Air 01/19/24 13:49 Temperat
[2024-01-19 14:43] LABS: Basophils Percent Auto 0.3 % (0.2-1.2); Eosinophils Absolute Auto 0.1 K/mm3 (0-0.3); Eosinophils Percent Auto 1.2 % (0-4.4); Hematocrit 36.7 % (37.0-47.0); Hemoglobin 12.5 g/dL (12.0-15.0); Immature Granulocyte Absolute 0.04 K/mm3 (0.00-0.031); Immature Granulocyte Percent A 0.4 % (0-0.5); Lymphocytes Absolute Auto 1.15 K/mm3 (0.9-3.2); Lymphocytes Percent Auto 12.8 % (18.3-44.2); Mean Corpuscular HGB Conc 34.1 g/dl (32-36); Mean Corpuscular Hemoglobin 30.4 pg (26-34); Mean Corpuscular Volume 89.3 fl (80-100); Monocytes Absolute Auto 0.5 K/mm3 (0.1-0.6); Monocytes Percent Auto 5.3 % (2.6-8.5); Neutrophils Absolute Auto 7.2 K/mm3 (1.3-6.7); Platelet Count Result 215 k/mm3 (150-375); Red Blood Count 4.11 M/mm3 (4.2-5.4); Red Cell Distribution Width 12.9 % (11.5-14.5)
[2024-01-19] MEDS: KETOROLAC 30 MG/ML VIAL (*BKC) IV PUSH (14:51)
[2024-01-19] MEDS: HYDROcodone/acetaminophen (*CRX) 5-325 MG TABLET 1 TAB PO (14:51)
[2024-01-19] MEDS: SODIUM CHLORIDE 0.9% IV 1,000 ML 999 ML IV CONT (14:51)
[2024-01-19 14:58] LABS: Alanine Aminotransferase 31 U/L (6-35); Albumin Level 3.8 g/dL (3.5-5.1); Alkaline Phosphatase 130 U/L (38-126); Anion Gap 11 mmol/L (4-12); Aspartate Amino Transferase 30 U/L (14-36); Bilirubin,Total 0.4 mg/dL (0.2-1.3); Blood Urea Nitrogen 10 mg/dL (7-17); Carbon Dioxide 21 mmol/L (22-30); Chloride 103 mmol/L (98-107); Estimated CRCL calculation 118 ml/min; Estimated Glomerular Filt Rate > 60; Glucose 87 mg/dL (65-110); Lipase 45 U/L (23-300); Potassium 3.8 mmol/L (3.4-5.0); Sodium 135 mmol/L (137-145)
[2024-01-19 15:00] VITALS: BP 112/71; O2SAT 97
[2024-01-19 15:01] LABS: Bacteria Urine 3+ /hpf; Non Pathogenic Casts 0-2; RBC Urine >100 /hpf (0-2); Squamous Epithelial Cell Urine Few /hpf (Few); WBC Urine >100 /hpf (0-3)
[2024-01-19 15:02] LABS: INR 0.9; Prothrombin Time 13.1 Seconds (11.1-14.7)
[2024-01-19 15:03] LABS: Partial Thromboplastin Time 28.7 Seconds (22.3-36.8)
[2024-01-19 15:08] LABS: Add Urine Microscopic? YES; Appearance Urine Turbid (Clear); Bilirubin Urine 1+ (Negative); Blood Urine 3+ (Negative); Glucose Urine UA Negative (Negative); Ketones Urine 1+ mg/dL (Negative); Leukocyte Esterase Ur 3+ LEU/UL (Negative); Nitrate Urine Negative (Negative); Protein Urine 3+ mg/dL (Negative); Specific Grav Ur 1.024 (1.001-1.035); Urobilinogen Urine 0.2 mg/dL (<2.0)
[2024-01-19 15:09] LABS: Color Urine Amber (Yellow)
[2024-01-19] MEDS: DOXYCYCLINE HYCLATE 100 MG TABLET PO (15:27)
[2024-01-19 16:27] LABS: Beta HCG Quantitative 30.86 mIU/ML
[2024-01-19 17:21] VITALS: BP 116/81; PULSE 82; RESP 18; TEMP 37.1; O2SAT 98
== END 2024-01-19 17:23 | disposition home or self-care (01) ==
PROVIDERS: Emergency Provider Registered Nurse
DX: O86.20 Urinary tract infection following delivery, unspecified (principal); N39.0 Urinary tract infection, site not specified; O90.89 Other complications of the puerperium, not elsewhere classified; O99.53 Diseases of the respiratory system complicating the puerperium; J45.909 Unspecified asthma, uncomplicated; O99.345 Other mental disorders complicating the puerperium; F41.9 Anxiety disorder, unspecified; F32.A Depression, unspecified; Z79.899 Other long term (current) drug therapy
CPT/HCPCS: 36415; 74177; 80053; 81001; 83690; 84702; 85025; 85610; 85730; 87086; 87088; 96361; 96374; 99284; A9270; J1885; J7030; Q9967

== ENCOUNTER 2024-03-17 13:05 | Emergency (ER) | payer BC, SELFPAY ==
[2024-03-17 13:30] VITALS: BP 124/89; PULSE 109; RESP 20; TEMP 36.8; O2SAT 100
--- NOTE | 2024-03-17 13:38 | ED.URI ---
HPI - URI/Sore Throat General Chief Complaint: Upper Respiratory Infection Stated Complaint: sore throat strep exp Time Seen by Provider: 03/17/24 13:34 Source: patient and RN notes reviewed Mode of arrival: ambulatory Limitations: no limitations History of Present Illness HPI Narrative: Patient presents today complaining of sore throat since last night. No additional symptoms. Son at home with strep throat. Currently rates her pain 6/10 and has tried no [id number] treatment prior to arrival. Related Data Home Medications Medication Instructions Recorded Confirmed cholecalciferol (vitamin D3) 125 125 mcg PO DAILY 12/20/23 03/17/24 mcg (5,000 unit) tablet Allergies Allergy/AdvReac Type Severity Reaction Status Date / Time cephalexin [From Keflex] Allergy Itching Verified 03/17/24 13:29 tramadol Allergy Itching Verified 03/17/24 13:29 Review of Systems Review of Systems: CONSTITUTIONAL: Denies body aches, fever, chills, or sweats. EYES: Denies visual changes, redness, or discharge. ENT: Denies rhinorrhea, congestion, or otalgia.+ sore throat CARDIOVASCULAR: Denies chest pain, palpitations, or edema. RESPIRATORY: Denies cough or dyspnea. GASTROINTESTINAL: Denies abdominal pain, nausea, vomiting, or diarrhea. GENITOURINARY: Denies dysuria or hematuria. SKIN: Denies rash, itching, or wounds. MUSCULOSKELETAL: Denies back pain, joint pain, or myalgia. NEUROLOGIC: Denies headache, numbness, tingling, or weakness. PSYCH: Denies depression or anxiety. [facility] Past Medical History Medical History Anxiety and depression Asthma H/O gastroesophageal reflux (GERD) History of premature rupture of membranes (PPROM) SOB (shortness of breath) Surgical History Surgical History H/O foot surgery History of nasal surgery History of tonsillectomy Family History Family History Mother Brain tumor Cerebrovascular accident Neoplasm of heart Other Asthma Social History Social History Smoking status: Never smoker Alcohol intake: current Substance use: never Do You Feel Safe in your Home?: Yes Lack of Transportation: No Lack of Food: Never True Current Housing: I Have Housing Concerned About Future Housing: No Difficulty Paying Gas/Electric Bills: No Difficulty Paying for Meds: No Currently Unemployed: No Education: Associate Degree Difficulty w/ Childcare or Family Care: No Living arrangements: with family Gender identity (if verbalized by the patient): Female Spiritual care concerns: No Comments At time of signature, I have reviewed and agree with nursing past medical, surgical, social and family history unless otherwise noted. Please see nursing chart for further information. There is no relevant family history pertinent to the presenting complaint Exam Narrative: GENERAL: Well-appearing, well-nourished, and in no acute distress. HEAD: Normocephalic, atraumatic. EYES: EOMI. No redness or drainage. Conjunctivae normal. ENT: Mucous membranes pink and moist. Nares clear. No rhinorrhea. TMs normal bilaterally. Throat mildly erythematous and edematous without exudate. Uvula midline. NECK: Normal AROM. Supple. No lymphadenopathy. CHEST: No respiratory distress. Clear to auscultation. HEART: Regular rate and rhythm. No murmur appreciated. EXTREMITIES: Normal range of motion. No edema. SKIN: Warm, dry, no rash. Capillary refill normal. Normal skin turgor. NEURO: No focal deficits. Alert and oriented x3. Gait steady. PSYCH: Normal affect. No signs of depression or anxiety. Course Course Level of Care: Express Care Visit Vital Signs Vital signs: Vital Signs Temperature 98.3 F 03/17/24 13:30 Pulse Rate 109 H 03/17/24 13:30 Respiratory Rate 20 03/17/24 13:30 Blood Pressure 124/89 03/17/24 13:30 Pulse Oximetry 100 03/17/24 13:30 Oxygen Delivery Room Air 03/17/24 13:30 Temperature 98.3 F 03/17/24 13:30 Pulse Rate 109 H 03/17/24 13:30 Respiratory Rate 20 03/17/24 13:30 Blood Pressure 124/89 03/17/24 13:30 Pulse Oximetry 100 03/17/24 13:30 Oxygen Delivery Room Air 03/17/24 13:30 Reviewed MDM - URI/Sore Throat MDM Narrative Medical decision making narrative: Rapid strep positive. Prescription for amoxicillin sent to pharmacy. Anticipatory guidance given. Differential Diagnosis Differential diagnosis: Likely upper respiratory infection, viral infection, pharyngitis and other (Strep throat) Lab Data Attestation: I reviewed the patient's lab results. Labs: Lab Results 03/17/24 Range/Units 13:37 POC Grp A Strep Screen Positive (Negative) Critical Care Time Critical Care Time Critical Care Time: No Discharge Plan Discharge Clinical Impression: Strep throat Patient Disposition: Home, Self-Care Condition: Stable Instructions: Antibiotic Form, Strep Throat (DC) Additional Instructions: You have tested positive for strep throat. Please take the amoxicillin as prescribed until gone. You will be contagious for 24 hours after starting the medication. Take Tylenol or Ibuprofen for pain or fever, if able. Rest and stay hydrated. Follow up with your PCP in 3 days if symptoms are not improving. Go to the ER immediately if you develops worsening symptoms such as shortness of breath, difficulty swallowing. Your blood pressure was elevated above 120/80 today at Urgent Care. This puts you above the threshold for follow up. Please schedule a followup visit with your personal physician as soon as possible, for further evaluation and treatment. Even blood pressure exceeding 120/80 may indicate pre-hypertension. Prescriptions: New amoxicillin 875 mg tablet 875 mg PO Q12H 10 Days Qty: 20 0RF No Action cholecalciferol (vitamin D3) 125 mcg (5,000 unit) Tablet 125 mcg PO DAILY ibuprofen 600 mg tablet 600 mg PO Q6H PRN (Reason: cramps) Qty: 30 0RF sertraline 100 mg tablet 200 mg PO DAILY Qty: 180 1RF buspirone 15 mg tablet 15 mg PO BID Qty: 180 1RF Follow-up/Referrals: PHYSICIAN,MAP[employer] MAKER [Primary Care Provider] - Time of Disposition: 13:42
[2024-03-17 13:39] LABS: EDSTREPNEGPOS1 Positive (Negative)
== END 2024-03-17 13:49 | disposition home or self-care (01) ==
PROVIDERS: Emergency Provider Nurse Practitioner
DX: J02.0 Streptococcal pharyngitis (principal); J45.909 Unspecified asthma, uncomplicated; K21.9 Gastro-esophageal reflux disease without esophagitis
CPT/HCPCS: 87880; 99213; G0463